=== PATIENT | female | born 2000 | race African-American/Black ===

== ENCOUNTER 2022-08-07 09:18 | Emergency (ER) | payer OTHER, MEDICAID, SELFPAY ==
[2022-08-07 09:25] VITALS: BP 131/89; PULSE 70; RESP 14; TEMP 37; O2SAT 99; BMI 26.6
[2022-08-07 10:01] LABS: Add Manual Diff / Slide Review NO; Basophils Absolute Auto 100 /uL (0-100); Basophils Percent Auto 0.8 % (0-2); Eosinophils Absolute Auto 500 /uL (0-450); Hematocrit 39.1 % (36-46); Hemoglobin 13.2 g/dL (12.0-16.0); Lymphocytes Absolute Auto 1900 /uL (1100-4500); Lymphocytes Percent Auto 21.8 % (25-40); Mean Corpuscular HGB Conc 33.7 % (30-36); Mean Corpuscular Hemoglobin 29.1 PG (26-34); Mean Corpuscular Volume 86.4 fL (80-100); Monocytes Absolute Auto 700 /uL (0-900); Monocytes Percent Auto 8.4 % (3-14); Neutrophils Absolute Auto 5400 /uL (1500-7000); Platelet Count 222 X10^3/uL (150-400); Red Blood Cell Count 4.52 X10^6/uL (4.0-5.2); Red Cell Distribution Width 14.5 % (11.6-14.8); White Blood Cell Count 8.6 X10^3/uL (4.5-11.0)
[2022-08-07 10:14] LABS: Alanine Aminotransferase 17 IU/L (<35); Albumin 4.5 g/dL (3.5-5.0); Albumin Globulin Ratio 1.3 (1.0-2.8); Alkaline Phosphatase 60 U/L (38-126); Aspartate Aminotransferase 23 IU/L (14-36); Bilirubin Total 0.4 mg/dL (0.2-1.3); Blood Urea Nitrogen 10 mg/dL (7-17); Calcium 8.9 mg/dL (8.4-10.2); Carbon Dioxide 24 mmol/L (22-32); Chloride 103 mmol/L (98-107); Estimated Glomerular Filt Rate > 60 mL/min (>60); Globulin 3.4 g/dL (1.7-4.1); Glucose 93 mg/dL (70-100); HEMOLYSIS < 15 (0-50); Lipase 97 U/L (23-300); Potassium 3.7 mmol/L (3.4-5.1); Sodium 136 mmol/L (137-145); Total Protein 7.9 g/dL (6.3-8.2)
--- NOTE | 2022-08-07 10:23 | DI.CT.S_ITS ---
PROCEDURE: CT ABDOMEN PELVIS W CON INDICATIONS: rlq pain TECHNIQUE: After the administration of intravenous contrast, axial sections acquired from the lung bases to the pubic symphysis. Coronal and sagittal reformats were performed. For radiation dose reduction, the following was used: automated exposure control, adjustment of mA and/or kV according to patient size. COMPARISON: None. FINDINGS: Image quality: Excellent. Lung bases: Unremarkable. Heart: No significant findings. ABDOMEN: Liver: Unremarkable. Gallbladder: Unremarkable. Biliary ducts: Unremarkable. Pancreas: Unremarkable. Spleen: Unremarkable. Adrenal Glands: Unremarkable. Kidneys and Ureters: Unremarkable. Stomach and Bowel: Stomach, small bowel loops, and colon are unremarkable. Normal, air-filled appendix. Large fecal load, including the cecum down in the right pelvis. Peritoneum: No abnormal intraperitoneal fluid. No free air. Ventral Wall: No hernias. Abdominal Nodes: No retroperitoneal or mesenteric adenopathy by size criteria. Vessels: Aorta and inferior vena cava are normal in size. PELVIS: Pelvic Organs: Unremarkable. Bladder: Bladder is partially decompressed. It has a thickened wall. Pelvic Nodes: No enlarged lymph nodes. Miscellaneous: No hernias are seen. Bones: Unremarkable. IMPRESSION: 1. Partially decompressed bladder with a thickened wall. Findings suggest cystitis. 2. Large fecal load, including the cecum, which is located in the right pelvis, possibly a cause of right lower quadrant pain. Dictated by: Sumit Garrett M.D. on 08/07/2022 at 10:39 Approved by: Sumit Garrett M.D. on 08/07/2022 at 10:44
--- NOTE | 2022-08-07 10:23 | DI.US.S_ITS ---
PROCEDURE: US PELVIC COMPLETE INDICATIONS: Right side pain, rule out ovarian torsion TECHNIQUE: Real-time scanning was performed of the pelvic organs, with image documentation. Additional endovaginal scanning was necessary due to incomplete visualization of the adnexal and endometrial structures by transabdominal scanning. COMPARISON: [facility], CT, CT ABDOMEN PELVIS W CON, 08/07/2022, 10:30. FINDINGS: Uterus: Uterus is anteverted and normal in size at 6.4 x 4.1 x 6.1 cm. The myometrium is homogeneous. The endometrium measures 7 mm combined thickness. No abnormal vascularity can be seen along the endometrial stripe. Ovaries: The right ovary measures 3 x 1.5 x 2.1 cm, with a calculated ovarian volume of 4.9 cc. The left ovary measures 4.9 3.2 x 1.7 x 1.9 cm, with a calculated ovarian volume of 5.4 cc. Normal appearing arterial and venous waveforms are confirmed to each ovary. The ovaries have a normal sonographic appearance. Less than 12 follicles can be seen in each ovary. No adnexal masses are seen. Other: A mild amount of free pelvic fluid is seen, which is considered to be within physiologic limits. IMPRESSION: Negative for ovarian torsion. We strive to produce accurate, complete, and clear reports of imaging services. To assist us in improving patient care, this report was composed using standard report templates and voice recognition software. Therefore, it may contain abnormal punctuation, insertions and/or omissions. Occasional wrong-word or sound-alike substitutions may occur. Though we review the report and make efforts to correct it, we do recommend that the report be read carefully in proper context to recognize any text inaccuracies. Dictated by: Juan Manuel Hilton M.D. on 08/07/2022 at 10:45 Approved by: Juan Manuel Hilton M.D. on 08/07/2022 at 10:47
--- NOTE | 2022-08-07 10:24 | ED_ITS ---
HPI - Abdominal Pain General Chief Complaint: Abdominal Pain Stated Complaint: pain in RT lower Quad abd/rt side breast pain Time Seen by Provider: 08/07/22 09:58 Source: patient Mode of arrival: Ambulatory History of Present Illness HPI narrative: Patient here with rich. Complains of right lower quadrant pain this morning that lasted 30 minutes. Sharp pain nonradiating. No urinary complaints no vomiting no diarrhea. No recent illness. Patient denies any abdominal surgical history. Denies . Has not had a period since February of last year. Has taken home tests and they are negative. Patient [facility] [place] she is had this pain right side left side off and on for the past 1 year. Has not seen anybody for this. Denies any ovarian cysts or ovarian disease. Patient pain-free and no complaints at this time. Patient is A1 Related Data Allergies Allergy/AdvReac Type Severity Reaction Status Date / Time No Known Drug Allergies Allergy Verified 08/07/22 09:31 Review of Systems Review of Systems Narrative: GENERAL: negative chills, fatigue, malaise, fever, sweats. HEENT: negative sinus pain, ear pain, sore throat RESPIRATORY: negative dyspnea, cough CARDIOVASCULAR: negative chest pain, palpitations GASTROINTESTINAL: negative nausea, vomiting, positive abdominal pain : negative dysuria, frequency, hematuria MUSCULOSKELETAL: negative muscle or bony pain SKIN: negative rash, skin lesions NEUROLOGIC: negative weakness, numbness ROS Unobtainable: All systems reviewed & are unremarkable except as noted in HPI and below Patient History Social History Smoking Status: Unknown if ever smoked Smoking Status: Unknown if ever smoked alcohol intake frequency: holidays/special occasions only Substance Use Type: does not use Exam Narrative Exam Narrative: GENERAL: in no distress, not toxic not dyspneic HEAD: Normocephalic. EYES: Pupils equal round ENT: Mucous membranes moist. NECK: Trachea midline. CARDIOVASCULAR: Regular rate and rhythm without murmurs RESPIRATORY: Clear to auscultation. Breath sounds equal bilaterally. No wheezes, rales, or rhonchi. GASTROINTESTINAL: Abdomen soft, non-tender abdomen soft flat nontender no peritoneal signs bowel sounds present. No McBurney point tenderness. No pain out of proportion to exam. No CVA tenderness EXTREMITIES: No gross deformities. BACK: No flank tenderness. NEURO: AOx4. SKIN: Warm and dry PSYCH: Not anxious, is cooperative Initial Vital Signs Initial Vital Signs: Vital Signs Temperature 98.6 F 08/07/22 09:25 Pulse Rate 70 08/07/22 09:25 Respiratory Rate 14 08/07/22 09:25 Blood Pressure 131/89 08/07/22 09:25 Pulse Oximetry 99 08/07/22 09:25 Oxygen Delivery Method Room Air 08/07/22 09:25 Course Orders Ordered: Discontinued Medications Sodium Chloride (Normal Saline 0.9%) 500 mls @ 1,000 mls/hr IV BOLUS ONE Stop: 08/07/22 10:52 Last Infusion: 08/07/22 11:45 Dose: 0 mls/hr Documented By: Admin: 08/07/22 11:06 Dose: 1,000 mls/hr Documented By: TAYLOR Vital Signs Vital signs: Vital Signs - 8 hr 08/07/22 09:25 08/07/22 11:07 08/07/22 11:11 Temperature 98.6 F Pulse Rate 70 68 71 Respiratory Rate 14 Blood Pressure 131/89 Pulse Oximetry 99 100 99 Oxygen Delivery Method Room Air 08/07/22 11:11 08/07/22 11:30 08/07/22 11:30 Temperature Pulse Rate 63 Respiratory Rate Blood Pressure 128/77 137/79 Pulse Oximetry 100 Oxygen Delivery Method MDM - Abdominal Pain Lab Data 08/07/22 09:50 08/07/22 09:50 Labs: Lab Results 08/07/22 08/07/22 Range/Units 09:50 09:50 WBC 8.6 (4.5-11.0) X10^3/uL RBC 4.52 (4.0-5.2) X10^6/uL Hgb 13.2 (12.0-16.0) g/dL Hct 39.1 (36-46) % MCV 86.4 (80-100) fL MCH 29.1 (26-34) PG MCHC 33.7 (30-36) % RDW 14.5 (11.6-14.8) % Plt Count 222 (150-400) X10^3/uL Neut % (Auto) 63.0 (50-75) % Lymph % (Auto) 21.8 L (25-40) % Daniels % (Auto) 8.4 (3-14) % Eos % (Auto) 6.0 H (2-4) % Baso % (Auto) 0.8 (0-2) % Neut # (Auto) 5400 (0162-5047) /uL Lymph # (Auto) 1900 (9301-9540) /uL Daniels # (Auto) 700 (0-900) /uL Eos # (Auto) 500 H (0-450) /uL Baso # (Auto) 100 (0-100) /uL Sodium 136 L (137-145) mmol/L Potassium 3.7 (3.4-5.1) mmol/L Chloride 103 (98-107) mmol/L Carbon Dioxide 24 (22-32) mmol/L BUN 10 (7-17) mg/dL Creatinine 0.77 (0.52-1.04) mg/dL Estimated GFR > 60 (>60) mL/min BUN/Creatinine Ratio 13.0 (6-22) Glucose 93 (70-100) mg/dL Calcium 8.9 (8.4-10.2) mg/dL Total Bilirubin 0.4 (0.2-1.3) mg/dL AST 23 (14-36) IU/L ALT 17 (<35) IU/L Alkaline Phosphatase 60 (38-126) U/L Total Protein 7.9 (6.3-8.2) g/dL Albumin 4.5 (3.5-5.0) g/dL Globulin 3.4 (1.7-4.1) g/dL Albumin/Globulin Ratio 1.3 (1.0-2.8) Lipase 97 (23-300) U/L Point of care testing: Point of Care Testing Test Results Negative Urine Dip Bedside Urine Glucose Negative Bedside Urine Bilirubin - Negative Bedside Urine Ketone +/- 5 Urine Specific Morrison 1.030 Bedside Urine Occult Blood - Negative Bedside Urine pH 5.5 Bedside Urine Protein - Negative Bedside Urine Urobilinogen - Negative Bedside Urine Nitrite - Negative Bedside Urine Leukocytes - Negative Esterase MDM Narrative Medical decision making narrative: After history and exam CBC CMP urinalysis test CT abdomen and pelvis pelvic ultrasound ordered. Patient is pain-free MDM CC: Right lower abdominal pain Complicating co-morbidities: None Data collected from: Patient and fiancee Medical records reviewed: No recent visits for this complaint Differential considered: Includes but not limited to kidney stone appendicitis ovarian torsion ovarian cysts Exam documented above, pertinent findings include: Nontender abdomen Lab Test results independently reviewed as above. Pertinent findings: WBC 8.6 point of care urinalysis negative negative nitrite or leuk esterase Imaging studies independently reviewed: Pelvic ultrasound, CT scan abdomen pelvis no acute process. There is large stool burden on right side colon/cecum Consultations: None indicated this time Treatments: Normal saline Re-evaluations: 12:00 p.m.. Reviewed results with patient and partner. Patient remains pain-free. Source of pain may be today the large amount of stool burden on the right colon/cecum. Did review with her dietary for fiber enhancement to reduce stool burden. She does admit she is irregular with her bowel movements. Primary care referral given to her. Return precautions reviewed with her. Return precautions for appendicitis precautions as well. Discussion: Appropriate for discharge home. Exam and laboratory studies and imaging are reassuring. Likely not torsion or appendicitis but precautions for return reviewed with patient. Pain-free at time of discharge. Not toxic at discharge. She desires discharge home. Diagnosis: Abdominal pain Discharge Plan Departure Patient Disposition: Home Clinical Impression: Abdominal pain Instructions: DI for Appendicitis -- Adult, DI for Abdominal Pain-Adult, DI for Constipation Activity Restrictions/Additional Instructions: See family doctor in a week for re-evaluation. Call provided primary care referral phone number to establish family doctor. Call [phone]. Keep well hydrated. Be sure to include daily fruits fiber salads vegetables in your diet. CT scan today does show a large amount of stool on the right side of your colon which may cause your pain today. At this time laboratory studies and imaging are reassuring. No surgery or antibiotics indicated at this time. However, return if worse if any questions or concerns. Information about appendicitis has been provided for you as well. At this time, appendix has been evaluated and does not appear to be inflamed. However return immediately if worse Referrals: Doctor Abdi MD [Primary Care Provider] - Stand Alone Forms: Patient Portal/API
[2022-08-07] MEDS: SODIUM CHLORIDE 0.9% 500 ML 1000 ML IV (11:06)
[2022-08-07 11:07] VITALS: PULSE 68; O2SAT 100
[2022-08-07 11:11] VITALS: BP 128/77; PULSE 71; O2SAT 99
[2022-08-07 11:30] VITALS: BP 137/79; PULSE 63; O2SAT 100
[2022-08-07 12:00] VITALS: BP 123/71; PULSE 63; O2SAT 100
[2022-08-07 12:30] VITALS: BP 130/80; PULSE 64; O2SAT 100
== END 2022-08-07 12:50 | disposition home or self-care (01) ==
PROVIDERS: Emergency Provider Emergency Medicine
DX: R10.31 Right lower quadrant pain (principal)
CPT/HCPCS: 36415; 74177; 76830; 76856; 80053; 81003; 81025; 83690; 85025; 99284; Q9967